=== PATIENT | female | born 1975 | race Caucasian/White ===

== ENCOUNTER 2021-10-12 15:57 | Emergency (ER) | payer MEDICAID, SELFPAY ==
[2021-10-12 16:13] VITALS: BP 156/99; PULSE 96; RESP 18; TEMP 36.7; O2SAT 98; BMI 66.5
--- NOTE | 2021-10-12 18:11 | W.ED.WOUNDLC ---
HPI - Wound/Laceration General: Chief Complaint: Wound/Laceration Stated Complaint: sore on belly/thigh Time Seen by Provider: 10/12/21 16:17 Source: patient Mode of arrival: ambulatory Limitations: no limitations History of Present Illness: 45-year-old female has a history of morbid obesity states that she has had increasing excoriations and redness and a foul smell coming from her skin folds. States she has noticed that over the last week. She denies any fevers she states that it is painful denies any worsening improving factors denies any vomiting or diarrhea. Associated symptoms: Denies chills, fever(s), nausea or vomiting Review of Systems Const: Denies: fever(s), chills, body aches or change in appetite Eyes: Denies: blurry vision or eye discomfort ENMT: Denies: throat pain or dental pain Card: Denies: chest pain Resp: Denies: dyspnea GI: Denies: abdominal pain, nausea, vomiting or diarrhea : Denies: dysuria Musc: Denies: neck pain or back pain Skin/Breast: Reports: rash Neuro: Denies: headache(s) Psych: Denies: depression Blayne/Lymph: Denies: easy bruising All/Imm: Denies: urticaria PFSH ED PFSH: Medical History (Updated 10/12/21 @ 19:13 by Dilip Munoz MD) Morbid obesity Social History (Updated 10/12/21 @ 18:13 by Dilip Munoz MD) Substance/Drug Use: never Female Reproductive History: Date of last menstrual period: 08/05/21 Physical Exam Const: COMMON NORMALS: no acute distress, patient oriented x3 and healthy appearing HENMT: COMMON NORMALS: normocephalic and atraumatic HEAD & SCALP: normocephalic and atraumatic Eye: COMMON NORMALS: Equal, round and reactive pupils present and EOMs intact bilaterally PUPIL: Yes Equal, round and reactive pupils present Neck/C-Spine: COMMON NORMALS: full ROM and supple Chest: COMMONS NORMALS: normal inspection of the chest and normal palpation of entire chest wall Resp: COMMON NORMALS: normal respiratory effort, No retractions, No use of accessory muscles and clear to auscultation bilaterally AUSCULTATION: clear to auscultation bilaterally Cardio: COMMON NORMALS: regular rate, regular rhythm and No murmurs present (Cardio) RATE: regular rate RHYTHM: regular rhythm GI: COMMON NORMALS: Normal to inspection, nondistended, normoactive bowel sounds present, Soft to palpation, non-tender and no masses PALPATION: Yes Soft to palpation OTHER: Multiple excoriations in her skin folds underneath her pannus with secondary infection likely fungal Extremity: COMMON NORMALS: normal to inspection and full ROM Neuro: COMMON NORMALS: patient oriented x3, moves all extremities and no focal motor deficits Psych: COMMON NORMALS: mental status grossly normal, Normal thought process present and cooperative THOUGHT PROCESS: Normal thought process present Skin: COMMON NORMALS: no rashes or lesions noted and no wounds GENERAL SKIN EXAM: no rashes or lesions noted Course Vital Signs: Vital signs: Vital Signs Temperature 98.1 F 10/12/21 16:13 Pulse Rate 96 10/12/21 16:13 Respiratory Rate 18 10/12/21 16:13 Blood Pressure 156/99 10/12/21 16:13 Pulse Oximetry 98 10/12/21 16:13 MDM - Wound/Laceration Medical Decision Making Patient presents here with severe intertrigo to her abdominal folds we will place her on Keflex along with ketoconazole antifungal and get her follow-up with dermatology she is stable for discharge and return if worsening. Lab Data : 10/12/21 18:50 Laboratory Results WBC 6.9 10^3/uL (4.0-10.0) 10/12/21 18:50 RBC 5.10 10^6/uL (4.1-5.3) 10/12/21 18:50 Hgb 13.1 g/dL (11.5-15.3) 10/12/21 18:50 Hct 42.3 % (37.0-47.0) 10/12/21 18:50 MCV 82.9 fl (81-99) 10/12/21 18:50 MCH 25.7 pg (28.0-34.0) L 10/12/21 18:50 MCHC 31.0 g/dL (30.0-36.0) 10/12/21 18:50 RDW 15.9 % (12.1-15.1) H 10/12/21 18:50 Plt Count 214 10^3/cmm (130-400) 10/12/21 18:50 MPV 10.1 fL (7.4-10.4) 10/12/21 18:50 Neut % (Auto) 68.6 % 10/12/21 18:50 Lymph % (Auto) 14.3 % 10/12/21 18:50 [place] % (Auto) 14.0 % 10/12/21 18:50 Eos % (Auto) 2.2 % 10/12/21 18:50 Baso % (Auto) 0.6 % 10/12/21 18:50 Neut # (Auto) 4.75 10^3/uL (1.8-7.7) 10/12/21 18:50 Lymph # (Auto) 1.0 10^3/uL (0.8-4.8) 10/12/21 18:50 [place] # (Auto) 1.0 10^3/uL (0.2-0.9) H 10/12/21 18:50 Eos # (Auto) 0.2 10^3/uL (0.0-0.8) 10/12/21 18:50 Baso # (Auto) 0.0 10^3/uL (0.0-0.1) 10/12/21 18:50 Nucleated RBC % (auto) 0 % 10/12/21 18:50 Nucleated RBCs # 0.0 /100WBC 10/12/21 18:50 Discharge Plan Discharge Patient Disposition: Home Clinical Impression: Intertrigo Prescriptions: New ketoconazole 2 % cream 1 applic topical BID 14 Days Qty: 60 0RF cephalexin 500 mg capsule 500 mg PO TID 7 Days Qty: 21 0RF Discharge Orders: Discharge ED (Routine); Ordered 10/12/21 Ordered By: Dilip Munoz Referrals: Vero Canas DO [Physician] - 1-3 days Discharge Diet: Advance as tolerated Discharge Activity: Resume usual activity Patient Instructions: Skin Yeast Infection (ED) Coding Level of Care Code ED Emergency Veterinary Assistant for Malathig Fwd Exam Comprehensive
[2021-10-12 19:07] LABS: Basophils % 0.6 %; Eosinophils # 0.2 10^3/uL (0.0-0.8); Eosinophils % 2.2 %; Hematocrit 42.3 % (37.0-47.0); Hemoglobin 13.1 g/dL (11.5-15.3); Lymphocytes % 14.3 %; Mean Corpuscular Hemoglobin 25.7 pg (28.0-34.0); Mean Corpuscular Volume 82.9 fl (81-99); Mean Platelet Volume 10.1 fL (7.4-10.4); Neutrophils # 4.75 10^3/uL (1.8-7.7); Neutrophils % 68.6 %; Nucleated Red Blood Cells % 0 %; Platelet Count 214 10^3/cmm (130-400); Red Cell Distribution Width 15.9 % (12.1-15.1); White Blood Count 6.9 10^3/uL (4.0-10.0)
[2021-10-12] MEDS: cefTRIAXone 1,000 MG in sodium chloride 0.9% (plus) 50 ML 100 MG IV (19:11)
[2021-10-12] MEDS: ondansetron 2 mg/ML SDV 2 mL 4 MG IVP (19:12)
--- NOTE | 2021-10-14 14:58 | DCPLANNER ---
multimedia manager had message to schedule a follow up appointment for patient with dermatology. multimedia manager is unable to schedule follow up appointments with dermatology from the ER. The clinic wants the referral to come from patients primary care physician. multimedia manager called patient and explained this to the patient. multimedia manager offered to get patient established with a primary care physician. Patient stated not at this time, she stated that she is not for sure if she is staying in the area or moving back to where she came from. Patient will call social work case manager if she decides that she wants to get established with a primary care physician.
== END 2021-10-12 20:02 | disposition home or self-care (01) ==
PROVIDERS: Emergency Provider Emergency Medicine
DX: L30.4 Erythema intertrigo (principal); E66.01 Morbid (severe) obesity due to excess calories; Z68.44 Body mass index [BMI] 60.0-69.9, adult
CPT/HCPCS: 85025; 96365; 96375; 99283; J0696; J2405

== ENCOUNTER 2023-01-23 12:53 | Outpatient (CLI) | payer MEDICARE, MEDICAID, SELFPAY ==
--- NOTE | 2023-01-23 13:23 | US_ITS ---
WS: [id number] US transvaginal [id number] HISTORY: EXCESSIVE FREQUENT MENSTRUATION W/IRREGULAR CYCLE COMPARISON: None available. Quality of this examination is compromised by body habitus. Uterus: 8.9 cm x 3.9 cm x 4.5 cm. Uterus appears normal in size but is tipped posterior with the fundus directed towards the sacrum. Th e entire uterus is not very well visualized due to the position of the uterus. No fibroid or mass vandana ntified. Endometrium: 0.9 cm. Limited but unremarkable. With history of abnormal bleeding further evaluation m ay be necessary to exclude neoplasm. Neither ovary is identified. No adnexal masses. No free fluid in the cul-de-sac. US/US transvaginal [id number] IMPRESSION: 1. Quality is compromised by body habitus and position of the uterus. 2. Neither ovary is identified. 3. Incomplete visualization of the endometrium.
--- NOTE | 2023-01-23 13:23 | USCV_ITS ---
Rose Carmona Age: 47 Gender: F : 1975 Exam Date: 01/23/2023 14:19 Ordering Phys: Amita Lui DO Technologist: CT Exam Location: [facility] – [place] Indication: family hx of bicuspid valve BP: 129 / 86 HR: 63 Rhythm: Sinus Technical Quality: Adequate MEASUREMENTS (Male / Female) Normal Values 2D ECHO LV Chamber Size 5.2 cm RV Chamber Size 3.6 cm LVOT Diameter 2.3 cm LV Ejection Fraction MOD 2C 21.4 % LV Ejection Fraction 2C AL 22.1 % LA Diameter 3.8 cm LA Width 4.6 cm LA Height 5.4 cm RA Width 4.0 cm RA Height 5.1 cm Aorta at Sinotubular Diameter 2.2 cm IVC Diameter 1.9 cm M-MODE Aortic Annulus Diameter 3.3 cm LA Ao Ratio MM 1.3 MV E Point Septal Separation 1.0 cm DOPPLER AV Peak Velocity 141.0 cm/s LVOT Peak Velocity 111.0 cm/s AV Area Cont Eq vti 3.1 cm squared AV Area Cont Eq pk 3.1 cm squared MV Peak Velocity 106.0 cm/s MV Area PHT 4.4 cm squared Mitral E to A Ratio 1.7 MV E' Velocity 58.5 cm/s Mitral E to MV E' Ratio 10.7 Mitral E to LV E' Lateral Ratio 10.3 Mitral E to LV E' Septal Ratio 11.3 TR Peak Velocity 109.7 cm/s TR Peak Gradient 4.8 mmHg TV Peak E Velocity 105.0 cm/s Right Atrial Pressure 3.0 mmHg Pulmonary Artery Systolic Pressu 7.8 mmHg PV Peak Velocity 113.0 cm/s FINDINGS Left Ventricle Left ventricle is normal in size. LV systolic function is normal with EF of 50 to 55%. No regional wall motion abnormalities are seen. Grossly LV systolic function is normal. Accurate assessment of regional wall motion normalities is not possible because of poor ultrasonic windows. Right Ventricle Normal in size and function Right Atrium Grossly normal Left Atrium Normal in size Mitral Valve Grossly normal. Aortic Valve Not well-visualized. No significant stenosis or regurgitation seen. Tricuspid Valve Mild tricuspid regurgitation. Pulmonary artery systolic pressure is normal. Pulmonic Valve Not well-visualized Pericardium Normal Aorta Normal in size IVC Appears to be normal CONCLUSIONS Technically limited quality echocardiogram because of poor ultrasonic windows. LV systolic function is grossly normal. Valvular structures are not well-visualized. Mild tricuspid regurgitation No comparison studies are available. Nicolás Cantu MD (Electronically Signed) Final Date: 23 January 2023 16:28 S
== END 2023-01-23 12:54 | disposition home or self-care (01) ==
PROVIDERS: PCP Family Medicine; Visit Provider Family Medicine
DX: Q23.1 Congenital insufficiency of aortic valve (principal); N92.1 Excessive and frequent menstruation with irregular cycle
CPT/HCPCS: 76830; 93306

== ENCOUNTER → 2023-02-11 12:00 | Outpatient (BNVA) | payer MEDICARE, MEDICAID, SELFPAY | PROVIDERS: PCP Family Medicine; Referring Provider Family Medicine; Visit Provider Nurse Practitioner Women's Health | DX: Z12.4 Encounter for screening for malignant neoplasm of cervix (principal) | CPT/HCPCS: 88175 ==

== ENCOUNTER → 2023-02-16 13:35 | Outpatient (BNVA) | payer MEDICARE, MEDICAID, SELFPAY | PROVIDERS: PCP Family Medicine; Referring Provider Family Medicine; Visit Provider Specialist | DX: M17.0 Bilateral primary osteoarthritis of knee; E66.01 Morbid (severe) obesity due to excess calories; M79.3 Panniculitis, unspecified; Z68.44 Body mass index [BMI] 60.0-69.9, adult | CPT/HCPCS: 73560; 73565; 99204 ==

== ENCOUNTER 2023-03-19 15:20 | Outpatient (CLI) | payer MEDICARE, MEDICAID, SELFPAY | END 2023-03-19 15:21 | disposition home or self-care (01) | PROVIDERS: PCP Family Medicine; Visit Provider Student in an Organized Health Care Education/Training Program | DX: Z01.89 Encounter for other specified special examinations (principal) | CPT/HCPCS: 36415; 83516; 83519 ==

== ENCOUNTER → 2023-04-08 10:53 | Outpatient (BNVA) | payer MEDICARE, MEDICAID, SELFPAY | PROVIDERS: PCP Family Medicine; Visit Provider Specialist | DX: G56.03 Carpal tunnel syndrome, bilateral upper limbs; E66.01 Morbid (severe) obesity due to excess calories; Z68.44 Body mass index [BMI] 60.0-69.9, adult | CPT/HCPCS: 73110; 99214 ==

== ENCOUNTER → 2023-05-04 08:32 | Outpatient (BNVA) | payer MEDICARE, MEDICAID, SELFPAY | PROVIDERS: PCP Family Medicine; Referring Provider Specialist; Visit Provider Anesthesiology Pain Medicine | DX: M54.16 Radiculopathy, lumbar region (principal); M17.0 Bilateral primary osteoarthritis of knee; E66.01 Morbid (severe) obesity due to excess calories; Z68.44 Body mass index [BMI] 60.0-69.9, adult | CPT/HCPCS: 99204 ==

== ENCOUNTER → 2023-07-09 13:54 | Outpatient (BNVA) | payer MEDICARE, MEDICAID, SELFPAY | PROVIDERS: PCP Family Medicine; Visit Provider Anesthesiology Pain Medicine | DX: M17.0 Bilateral primary osteoarthritis of knee (principal) | CPT/HCPCS: 20610; J1030; J3490 ==

== ENCOUNTER → 2023-07-23 14:40 | Outpatient (BNVA) | payer MEDICARE, SELFPAY | PROVIDERS: PCP Family Medicine; Visit Provider Nurse Practitioner Women's Health | DX: E66.01 Morbid (severe) obesity due to excess calories (principal); R53.83 Other fatigue | CPT/HCPCS: 82670; 83001; 84146; 84443 ==

== ENCOUNTER → 2023-08-13 11:43 | Outpatient (BNVA) | payer MEDICARE, SELFPAY | PROVIDERS: PCP Family Medicine; Visit Provider Obstetrics & Gynecology | DX: I87.2 Venous insufficiency (chronic) (peripheral) (principal); L30.4 Erythema intertrigo; D22.21 Melanocytic nevi of right ear and external auricular canal; L57.8 Other skin changes due to chronic exposure to nonionizing radiation; L81.4 Other melanin hyperpigmentation; L82.0 Inflamed seborrheic keratosis; L84 Corns and callosities; L82.1 Other seborrheic keratosis | CPT/HCPCS: 17110; 76830; 99204 ==

== ENCOUNTER → 2023-08-21 12:42 | Outpatient (BNVA) | payer MEDICARE, MEDICAID, SELFPAY | PROVIDERS: PCP Family Medicine; Visit Provider Specialist | DX: G56.01 Carpal tunnel syndrome, right upper limb (principal) | CPT/HCPCS: 95911 ==

== ENCOUNTER 2023-08-28 10:45 | Outpatient (CLI) | payer MEDICARE, MEDICAID, SELFPAY ==
--- NOTE | 2023-08-28 11:00 | MR_ITS ---
WS: [id number] MRI HEAD WITH CONTRAST TECHNIQUE: Sagittal T1, T2 axial, T2 axial FLAIR, axial susceptibility weighted imaging, axial diffus ion weighted images, and coronal T2 images were obtained. Pre and post-T1 axial and post T1 coronal i mages. ADC and FSPGR images. CLINICAL INFORMATION: R79.89 - Other specified abnormal findings of blood chemi... COMPARISON: None. FINDINGS: No evidence of restricted diffusion to suggest acute ischemia. Ventricular system and basal cisterns are patent. Mild patchy supratentorial white matter changes nonspecific in a patient this age but can be seen with hypertension, diabetes, collagen vascular disease, and migraine headaches. Demyelinatin g disease less likely. Normal corpus callosum. No significant parenchymal volume loss. Normal posterior fossa. Normal vascular flow voids at the skull base. No extra-axial fluid collection s. No evidence of mass or mass effect. Paranasal sinuses and mastoid air cells are well aerated. Norm al posterior nasopharynx. No hemosiderin on the susceptibly weighted images. Normal optic chiasm and pituitary infundibulum. Te mporal lobes and hippocampal formations are normal in appearance. No abnormal gadolinium enhancement. Normal dural venous sinuses. No other suspicious findings. IMPRESSION: 1. No evidence of restricted diffusion to suggest acute ischemia. 2. Mild patchy supratentorial white matter changes nonspecific in a patient this age but can be seen with hypertension, diabetes, collagen vascular disease, and migraine headaches. Demyelinating diseas e is less likely. 3. Corpus callosum appears normal. 4. No significant parenchymal volume loss. 5. No abnormal gadolinium enhancement. 6. No other suspicious findings.
[2023-08-28] MEDS: gadobenate dimeglumine 20 mL vial IV (11:31)
== END 2023-08-28 10:46 | disposition home or self-care (01) ==
PROVIDERS: PCP Family Medicine; Visit Provider Nurse Practitioner Women's Health
DX: R79.89 Other specified abnormal findings of blood chemistry (principal)
CPT/HCPCS: 70553; A9577

== ENCOUNTER → 2023-09-03 09:31 | Outpatient (BNVA) | payer MEDICARE, MEDICAID, SELFPAY | PROVIDERS: PCP Family Medicine; Visit Provider Nurse Practitioner Family | DX: B07.8 Other viral warts (principal); D22.21 Melanocytic nevi of right ear and external auricular canal; L57.8 Other skin changes due to chronic exposure to nonionizing radiation; L81.4 Other melanin hyperpigmentation | CPT/HCPCS: 17110; 99213 ==

== ENCOUNTER 2023-09-15 02:59 | Emergency (ER) | payer MEDICARE, MEDICAID, SELFPAY ==
[2023-09-15 03:04] VITALS: BP 158/78; PULSE 77; RESP 18; TEMP 36.4; O2SAT 96; BMI 74.5
--- NOTE | 2023-09-15 03:14 | CTR_ITS ---
PROCEDURE INFORMATION: Exam: CT Abdomen And Pelvis With Contrast Exam date and time: 09/15/2023 3:57 AM Age: 47 years old Clinical indication: Abdominal pain; Localized; Left lower quadrant (llq); Additional info: Rlq abd pain TECHNIQUE: Imaging protocol: Computed tomography of the abdomen and pelvis with contrast. Radiation optimization: All CT scans at this facility use at least one of these dose optimization techniques: automated exposure control; mA and/or kV adjustment per patient size (includes targeted exams where dose is matched to clinical indication); or iterative reconstruction. Contrast material: OMNI 350; Contrast volume: 125 ml; Contrast route: INTRAVENOUS (IV); COMPARISON: US transvaginal [id number] 08/13/2023 11:50 AM RADIATION DOSE METRICS: Total DLP (mGy-cm): 1365 FINDINGS: Liver: Normal. No mass. Gallbladder and bile ducts: Normal. No calcified stones. No ductal dilation. Pancreas: Normal. No ductal dilation. Spleen: Normal. No splenomegaly. Adrenal glands: Normal. No mass. Kidneys and ureters: Tiny nonobstructing right renal calculi. Small bilateral renal cysts. Moderate right hydronephrosis secondary to a 7 mm calculus in the proximal right ureter. Stomach and bowel: Unremarkable. No obstruction. No mucosal thickening. Appendix: No evidence of appendicitis. Intraperitoneal space: Unremarkable. No free air. No significant fluid collection. Vasculature: Unremarkable. No abdominal aortic aneurysm. Lymph nodes: Unremarkable. No enlarged lymph nodes. Urinary bladder: Unremarkable as visualized. Reproductive: Unremarkable as visualized. Bones/joints: Unremarkable. No acute fracture. Soft tissues: Large ventral abdominal hernia containing a loop of nonobstructed transverse colon. CT/CT abdomen pelvis w con* [id number] IMPRESSION: Moderate right hydronephrosis secondary to a 7 mm calculus in the proximal right ureter. COMMENTS: Consistent with the [employer]'s Incidental Findings Committee white paper (J Am Reva Radiol 2018): Any incidental renal lesion less than 1 cm or classified as too small to characterize, or any incidental cystic renal lesion characterized as simple-appearing, is likely benign. No follow-up imaging is recommended for these lesions per consensus recommendations based on imaging criteria.
[2023-09-15 03:25] LABS: Basophils # 0.1 10^3/uL (0.0-0.1); Basophils % 0.7 %; Eosinophils # 0.3 10^3/uL (0.0-0.8); Eosinophils % 2.5 %; Lymphocytes # 1.8 10^3/uL (0.8-4.8); Lymphocytes % 17.1 %; Mean Corpuscular HGB Conc 31.1 g/dL (30-55); Mean Corpuscular Hemoglobin 26.3 pg (27-33); Mean Corpuscular Volume 84.6 fl (85-98); Mean Platelet Volume 9.9 fL (7.4-10.4); Monocytes # 0.7 10^3/uL (0.2-0.9); Monocytes % 6.6 %; Neutrophils # 7.42 10^3/uL (1.8-7.7); Neutrophils % 72.7 %; Nucleated Red Blood Cells % 0 %; Platelet Count 268 10^3/cmm (157-399); Red Blood Count 5.32 10^6/uL (3.85-5.65); Red Cell Distribution Width 14.6 % (12.1-15.1); White Blood Count 10.21 10^3/uL (3.29-11.43)
[2023-09-15 03:28] LABS: HCG Qualitative Urine. Negative (Negative)
[2023-09-15 03:33] LABS: Add Urine Culture? No; Add Urine Microscopic? YES; Bacteria Urine 1+ /hpf; Bilirubin Urine Neg (Negative); Blood Urine 2+ (Negative); Glucose Urine UA Norm (Normal); Ketones Urine Negative (Negative); Leukocyte Esterase Urine Negative (Negative); Mucus Urine 1+ /hpf; Nitrate Urine Negative (Negative); Protein Urine Neg (Negative); RBC Urine 15-25 /hpf (0-2); Specific Gravity, Urine 1.025 (1.005-1.030); Squamous Epithelial Cell Urine 15-25 /hpf (0-5); Urine Appearance Hazy (CLEAR); Urine Color Light yellow (Yellow); Urobilinogen Urine Neg (Negative); WBC Urine 0-4 /hpf (0-5); pH Urine 5 (5-7)
[2023-09-15 03:46] LABS: Alanine Aminotransferase 13 U/L (0-33); Albumin Level 4.2 g/dL (3.5-5.2); Alkaline Phosphatase 104 U/L (35-105); Blood Urea Nitrogen 20 mg/dL (6-20); Calcium 9.4 mg/dL (8.5-10.5); Carbon Dioxide 24 mmol/L (22-29); Chloride 103 mmol/L (98-107); Creatinine Clr Calc Pharmacy 132.4877; Globulin 2.5 g/dL (1.3-4.6); Glomerular Filtration Rate 58.9 mL/min (90-130); Glucose 116 mg/dL (65-115); Lipase 42 U/L (13-60); Osmolality Calculated 288 mOsm/kg (285-295); Sodium 137 mmol/L (136-145); Total Bilirubin 0.3 mg/dL (0.15-1.2); Total Protein 6.7 g/dL (6.6-8.7)
[2023-09-15 03:48] LABS: Anion Gap 14.3 (5-19); Potassium 4.3 mmol/L (3.5-5.1)
[2023-09-15 03:49] LABS: Aspartate Amino Transferase 19 U/L (0-32)
[2023-09-15] MEDS: iohexol 350 mg/mL 500 mL Btl (per mL) IV (03:59)
[2023-09-15] MEDS: ketorolac 30 mg/mL INJ IVP (04:08)
--- NOTE | 2023-09-15 04:19 | ED_ITS ---
HPI - Abdominal Pain 2 General: Chief Complaint: Abdominal Pain Stated Complaint: abd pain Time Seen by Provider: 09/15/23 03:14 History of Present Illness: 47-year-old female presents the emergenc y department with complaints of right lower quadrant abdominal pain. She states she has recently been seen by ANTISQUEAK CHALKER for similar complaints. She does have a MRI of her abdomen scheduled for September. Patient states she does have intermittent sharp and mixed with a dull vague 8 out of 10 right flank and right abdominal pain. She states nothing seems to make it better nothing seems to make it worse. She states she does have associated nausea without vomiting. Associated Symptoms: Reports nausea; Denies vomiting Review of Systems 2 General: Reports: 10 or more systems reviewed and unremarkable except in HPI and below GI: Reports: abdominal pain and nausea; Denies: vomiting : Reports: flank pain PFSH ED 2 PFSH: Medical History Morbid obesity Family History Grandmother Diabetes Grandfather Heart disease maternal Mother Ovarian cancer dx'd at age 60 Denies family history of Colon cancer Prostate cancer Hyperlipidemia Breast cancer Hypertension Uterine cancer Thyroid disease Stroke Physical Exam 2 Narrative: EXAM NARRATIVE: Constitutional: the patient appears well nourished and of normal development. Vital signs as documented. Mild appearance of pain noted. Alert and oriented- to person, place, time and situation. Morbidly obese. Head, eyes, ears, nose, mouth, throat: Normocephalic, atraumatic. Pupils-equal, round, reactive to light. No scleral icterus. Normal-appearing external ears. Normal appearing nasal turbinates, no drainage. No obvious oral lesions, posterior oropharynx without erythema or exudates. Neck: Supple, trachea is midline, no lymphadenopathy, no jugular venous distension, thyromegaly, or carotid bruits. Carotid upstrokes are brisk bilaterally. Lungs: clear to auscultation to all lung [place]. Decreased bilaterally in the bases secondary to body habitus symmetrical rise and fall of chest, no obvious signs of increased work of breathing at present. Cardiac: Regular rate and rhythm, positive S1, S2. No murmurs, rubs or gallops that I can appreciate Abdomen: Soft, non-tender to palpation, normal active bowel sounds to all quadrants. No palpable masses, no organomegaly and abdominal bruits. Back: Right CVA tenderness to percussion, normal alignment of the vertebral column Extremities: 2+ pulses in the upper extremities that are equal bilaterally, 2+ pulses in the lower extremities that are equal bilaterally. Non-edematous. Moves all extremities well, sensation to all extremities are noted. Skin: Warm, dry, intact. Course 2 Vital Signs: Vital signs: Vital Signs Temperature 97.5 F L 09/15/23 03:04 Pulse Rate 61 09/15/23 04:26 Respiratory Rate 16 09/15/23 04:26 Blood Pressure 151/68 09/15/23 04:26 Pulse Oximetry 98 09/15/23 04:26 Oxygen Delivery Me thod Room Air 09/15/23 03:04 MDM - Abdominal Pain Medical Decision Making Physical exam completed and documented I will obtain a CBC and CMP as well as a CT scan abdomen pelvis. Will obtain a urinalysis to evaluate for urinary tract infection as well as a urine hCG. Patient does have an extensive history of abdominal pain and has been seen by ANTISQUEAK CHALKER and pain management previously. Differential diagnosis includes acute appendicitis, ectopic , ovarian cyst, gastroenteritis, cystitis, pyelonephritis, renal calculi, colitis. Medical Records I reviewed the patient's medical records. Lab Data I reviewed the patient's lab results. 09/15/23 03:10 09/15/23 03:10 Labs/Radiology: Radiology Impressions Abdomen/Pelvis CT 09/15/23 03:14 IMPRESSION: Moderate right hydronephrosis secondary to a 7 mm calculus in the proximal right ureter. COMMENTS: Consistent with the [employer]'s Incidental Findings Committee white paper (J Am Reva Radiol 2018): Any incidental renal lesion less than 1 cm or classified as too small to characterize, or any incidental cystic renal lesion characterized as simple-appearing, is likely benign. No follow-up imaging is recommended for these lesions per consensus recommendations based on imaging criteria. Laboratory Results WBC 10.21 10^3/uL (3.29-11.43) 09/15/23 03:10 RBC 5.32 10^6/uL (3.85-5.65) 09/15/23 03:10 Hgb 14.00 g/dL (11.27-16.99) 09/15/23 03:10 Hct 45.0 % (36-47) 09/15/23 03:10 MCV 84.6 fl (85-98) L 09/15/23 03:10 MCH 26.3 pg (27-33) L 09/15/23 03:10 MCHC 31.1 g/dL (30-55) 09/15/23 03:10 RDW 14.6 % (12.1-15.1) 09/15/23 03:10 Plt Count 268 10^3/cmm (157-399) 09/15/23 03:10 MPV 9.9 fL (7.4-10.4) 09/15/23 03:10 Neut % (Auto) 72.7 % 09/15/23 03:10 Lymph % (Auto) 17.1 % 09/15/23 03:10 [place] % (Auto) 6.6 % 09/15/23 03:10 Eos % (Auto) 2.5 % 09/15/23 03:10 Baso % (Auto) 0.7 % 09/15/23 03:10 Neut # (Auto) 7.42 10^3/uL (1.8-7.7) 09/15/23 03:10 Lymph # (Auto) 1.8 10^3/uL (0.8-4.8) 09/15/23 03:10 [place] # (Auto) 0.7 10^3/uL (0.2-0.9) 09/15/23 03:10 Eos # (Auto) 0.3 10^3/uL (0.0-0.8) 09/15/23 03:10 Baso # (Auto) 0.1 10^3/uL (0.0-0.1) 09/15/23 03:10 Nucleated RBC % (auto) 0 % 09/15/23 03:10 Nucleated RBCs # 0.0 /100WBC 09/15/23 03:10 Sodium 137 mmol/L (136-145) 09/15/23 03:10 Potassium 4.3 mmol/L (3.5-5.1) 09/15/23 03:10 Chloride 103 mmol/L (98-107) 09/15/23 03:10 Carbon Dioxide 24 mmol/L (22-29) 09/15/23 03:10 Anion Gap 14.3 (5-19) 09/15/23 03:10 BUN 20 mg/dL (6-20) 09/15/23 03:10 Creatinine 1.0 mg/dL (0.5-0.9) H 09/15/23 03:10 GFR Calculation 58.9 mL/min (90-130) L 09/15/23 03:10 Glucose 116 mg/dL (65-115) H 09/15/23 03:10 Calculated Osmolality 288 mOsm/kg (285-295) 09/15/23 03:10 Calcium 9.4 mg/dL (8.5-10.5) 09/15/23 03:10 Total Bilirubin 0.3 mg/dL (0.15-1.2) 09/15/23 03:10 AST 19 U/L (0-32) 09/15/23 03:10 ALT 13 U/L (0-33) 09/15/23 03:10 Alkaline Phosphatase 104 U/L (35-105) 09/15/23 03:10 Total Protein 6.7 g/dL (6.6-8.7) 09/15/23 03:10 Albumin 4.2 g/dL (3.5-5.2) 09/15/23 03:10 Globulin 2.5 g/dL (1.3-4.6) 09/15/23 03:10 Lipase 42 U/L (13-60) 09/15/23 03:10 HCG, Qual Negative (Negative) 09/15/23 03:10 Urine Color Light yellow (Yellow) 09/15/23 03:10 Urine Appearance Hazy (CLEAR) A 09/15/23 03:10 Urine pH 5 (5-7) 09/15/23 03:10 Ur Specific [place] 1.025 (1.005-1.030) 09/15/23 03:10 Urine Protein Neg (Negative) 09/15/23 03:10 Urine Glucose (UA) Norm (Normal) 09/15/23 03:10 Urine Ketones Negative (Negative) 09/15/23 03:10 Urine Blood 2+ (Negative) H 09/15/23 03:10 Urine Nitrate Negative (Negative) 09/15/23 03:10 Urine Bilirubin Neg (Negative) 09/15/23 03:10 Urine Urobilinogen Neg mg/dL (Negative) 09/15/23 03:10 Ur Leukocyte Esterase Negative (Negative) 09/15/23 03:10 Urine RBC 15-25 /hpf (0-2) H 09/15/23 03:10 Urine WBC 0-4 /hpf (0-5) H 09/15/23 03:10 Ur Squamous Epith Cells 15-25 /hpf (0-5) H 09/15/23 03:10 Amorphous Sediment Not Reportable 09/15/23 03:10 Urine Bacteria 1+ /hpf (NONE) H 09/15/23 03:10 Urine Mucus 1+ /hpf 09/15/23 03:10 All radiology interpretation(s) finalized by discharge Discharge Plan Discharge Patient Disposition: Home Clinical Impression: Kidney stone on right side, Nausea Condition: Stable Prescriptions: New ondansetron HCl 4 mg tablet 4 mg PO Q12H 5 Days Qty: 10 0RF Flomax 0.4 mg capsule 0.4 mg PO DAILY Qty: 30 0RF No Action propranolol 40 mg tablet 40 mg PO BID losartan 50 mg tablet 50 mg PO DAILY duloxetine 30 mg capsule, delayed rel sprinkle 30 mg PO TID cyclobenzaprine 10 mg tablet 10 mg PO Patient Comments: At bedtime when needed cetirizine [Zyrtec] 10 mg tablet 10 mg PO DAILY PRN famotidine 20 mg tablet 20 mg PO BID topiramate 50 mg tablet 50 mg PO BID 30 Days Qty: 60 0RF Discharge Orders: Discharge ED (Routine); Ordered 09/15/23 Ordered By: Jr Benito Referrals: Amita Lui DO [Primary Care Provider] - Discharge Diet: Usual diet Discharge Activity: Resume usual activity Patient Instructions: Opioid Safety, Pain Management Activity Restrictions/Additional Instructions: Activity Restrictions/Additional Instructions: Thank you for choosing [facility] for your healthcare needs today. Please realize that you were seen in the Emergency Department and that we are providing you with an emergency medical screening exam and this may not be a complete and all inclusive of all the testing and or medical work-up that you may need to determine your ailment or severity of your illness. It is very important that you follow-up as instructed with your Primary care provider or Specialist for additional evaluation and to discuss your medical treatment plan. Call to make a Follow-up appointment: [facility] [address] [place] [address] [facility] [address] Prieto [place], [place] [address] Phone--[phone] Coding Level of Care Code ED Nurseryperson for Ro Jenkins
[2023-09-15] MEDS: ondansetron 2 mg/ML SDV 2 mL 4 MG IVP (04:23)
[2023-09-15 04:26] VITALS: BP 151/68; PULSE 61; RESP 16; O2SAT 98
== END 2023-09-15 05:39 | disposition home or self-care (01) ==
PROVIDERS: Emergency Provider Internal Medicine; PCP Family Medicine
DX: N13.2 Hydronephrosis with renal and ureteral calculous obstruction (principal); R11.0 Nausea
CPT/HCPCS: 74177; 80053; 81001; 81025; 83690; 85025; 96374; 96375; 99285; J1885; J2405; Q9967

== ENCOUNTER → 2023-09-28 09:53 | Outpatient (BNVA) | payer MEDICARE, MEDICAID, SELFPAY | PROVIDERS: PCP Family Medicine; Visit Provider Anesthesiology Pain Medicine | DX: M54.16 Radiculopathy, lumbar region (principal); M17.0 Bilateral primary osteoarthritis of knee; E66.01 Morbid (severe) obesity due to excess calories; Z68.45 Body mass index [BMI] 70 or greater, adult | CPT/HCPCS: 99214 ==

== ENCOUNTER 2023-10-06 07:06 | Outpatient (CLI) | payer MEDICARE, MEDICAID, SELFPAY ==
--- NOTE | 2023-10-06 07:15 | MR_ITS ---
WS: [id number] MRI/MRCP OF THE ABDOMEN WITHOUT GADOLINIUM ENHANCEMENT TECHNIQUE: Coronal T2 Fase BH, Axial T2 Fase BH, Axial T2 FS BH, Zxial 3D Parker BH, Axial DWI BH, 2D MRCP Radial BH, 3D MRCP (Resp), and Axial 3D Dyn BH Post sequences. CLINICAL INFORMATION: Z80.41 - Family history of malignant neoplasm of ovary COMPARISON: CT 09/15/2023 FINDINGS: Diastases of the rectus abdominis. [place] ventral abdominal wall hernia containing a loop of nonob structed transverse colon similar to the recent CT. Some of this extends off the [id number]. Herni a mouth measures approximately 7.7 cm. Contained hernia is in the midline near the level of the umbil icus or just inferior to the umbilicus. Moderate spondylitic changes lumbar spine. Lumbar curve. Anteverted uterus. Normal sigmoid colon. No free fluid in the pelvis. Partially visualized RIGHT hydronephrosis appears stable compared to the pr ior CT. Proximal RIGHT ureterectasis. Previously described 7 mm obstructing calculus better seen on t he prior CT. Recommend CT follow-up. Normal caliber distal abdominal aorta. A few tiny bilateral renal cysts. Adrenal glands are normal. In addition,, tiny umbilical and and RIGHT supraumbilical defects containing a tiny amount of omental fat better seen on the prior CT without significant herniation. Impression: 1. [place] ventral abdominal wall hernia with rectus diastases. [place] hernia contains a loop o f nonobstructed transverse colon. Hernia mouth measures 7.7 cm. Hernia is in the midline at the umbil icus or just inferior to the umbilicus and partially extends off the [id number]. This is more comp letely visualized on the recent CT. 2. No evidence of bowel obstruction. 3. Stable RIGHT moderate hydronephrosis and RIGHT ureterectasis. Previously described obstructing ca lculus better seen on the recent CT. Recommend correlation with renal function and CT renal stone pro tocol follow-up 4. 2 additional tiny abdominal wall defects at the level of the umbilicus and RIGHT supraumbilical w ith a tiny amount of fat herniation. Series 701 image 54 and series 701 image 44. areas are indicated in the bookmarks section
[2023-10-06] MEDS: gadobenate dimeglumine 20 mL vial IV (08:24)
== END 2023-10-06 07:07 | disposition home or self-care (01) ==
LOC: RAD 07:06
PROVIDERS: PCP Family Medicine; Visit Provider Nurse Practitioner Women's Health
DX: Z80.41 Family history of malignant neoplasm of ovary (principal); K43.9 Ventral hernia without obstruction or gangrene; M62.08 Separation of muscle (nontraumatic), other site; N13.30 Unspecified hydronephrosis; N13.4 Hydroureter
CPT/HCPCS: 74183; 99203; A9577

== ENCOUNTER → 2023-11-03 12:40 | Outpatient (BNVA) | payer MEDICARE, MEDICAID, SELFPAY | PROVIDERS: PCP Family Medicine; Visit Provider Surgery | DX: K46.9 Unspecified abdominal hernia without obstruction or gangrene | CPT/HCPCS: 99204 ==

== ENCOUNTER 2023-11-09 10:43 | Outpatient (CLI) | payer MEDICARE, MEDICAID, SELFPAY ==
--- NOTE | 2023-11-09 11:00 | MR_ITS ---
WS: [id number] MRI PELVIS WITH AND WITHOUT CONTRAST CONTRAST. COMPARISON: Pelvic ultrasound 08/13/2023 Multiplanar, multisequence imaging is performed with and without contrast. MultiHance 20 mL IV. History: Abdominal distention with gas. No free fluid or adenopathy within the pelvis. Patient has a known ventral abdominal wall hernia belo w the umbilicus. This is a large mouth hernia containing nonobstructed transverse colon. Similar to t he prior study of 10/06/2023. There is marked thinning of the abdominal wall musculature. There is also marked atrophy of the psoas muscles. Uterus is midline and normal size. No fibroid or mass. Both ovaries aren't dental 5. Small follicle a ssociated with the LEFT ovary measuring 11 mm. Urinary bladder is nondistended. No intraluminal mass. Osseous structures are normal. MR/MR pelvis wo/w con [id number] IMPRESSION: 1. Normal uterus and adnexa. 2. Large infraumbilical abdominal wall hernia containing nonobstructed transve rse colon. 3. No ascites or adenopathy.
[2023-11-09] MEDS: gadobenate dimeglumine 20 mL vial IV (11:24)
== END 2023-11-09 10:44 | disposition home or self-care (01) ==
LOC: RAD 10:43
PROVIDERS: PCP Family Medicine; Visit Provider Nurse Practitioner Women's Health
DX: R14.0 Abdominal distension (gaseous) (principal); K42.9 Umbilical hernia without obstruction or gangrene; Z80.41 Family history of malignant neoplasm of ovary; R10.2 Pelvic and perineal pain; Z80.9 Family history of malignant neoplasm, unspecified
CPT/HCPCS: 72197; A9577

== ENCOUNTER 2024-01-18 10:58 | Outpatient (CLI) | payer MEDICARE, MEDICAID, SELFPAY ==
--- NOTE | 2024-01-18 11:06 | MM_ITS ---
WS: [id number] BILATERAL SCREENING DIGITAL TOMOSYNTHESIS MAMMOGRAM WITH CAD HISTORY: SCREENING COMPARISON: None available. Bilateral CC and MLO views with tomosynthesis and synthetic mammography submitted. Computer aided det ection analyzed. Breast composition: There are scattered areas of fibroglandular density. No suspicious masses, microc alcifications or architectural distortion. Scattered benign calcifications throughout each breast. No suspicious grouping of calcifications or asymmetries. MM/[place] [id number] IMPRESSION: BI-RADS: 2-Benign FOLLOW UP: 1 Year Follow-up
== END 2024-01-18 10:59 | disposition home or self-care (01) ==
LOC: RAD 10:59
PROVIDERS: PCP Family Medicine; Visit Provider Family Medicine
DX: Z12.31 Encounter for screening mammogram for malignant neoplasm of breast (principal)
CPT/HCPCS: 77063; 77067

== ENCOUNTER → 2024-02-01 15:04 | Outpatient (BNVA) | payer MEDICARE, MEDICAID, SELFPAY | PROVIDERS: PCP Family Medicine; Visit Provider Specialist | DX: G56.03 Carpal tunnel syndrome, bilateral upper limbs (principal) | CPT/HCPCS: 73130; 99214 ==

== ENCOUNTER → 2024-03-30 10:56 | Outpatient (BNVA) | payer MEDICARE, MEDICAID, SELFPAY | PROVIDERS: PCP Family Medicine; Visit Provider Specialist | DX: G56.03 Carpal tunnel syndrome, bilateral upper limbs (principal); Z01.818 Encounter for other preprocedural examination; R79.89 Other specified abnormal findings of blood chemistry | CPT/HCPCS: 36415; 80053; 81003; 83036; 85025; 99214 ==

== ENCOUNTER 2024-04-19 05:30 | Day surgery (SDC) | payer MEDICARE, MEDICAID, SELFPAY ==
--- OUTSIDE RECORDS SUMMARY | 2024-04-04 15:17 | XMS_ITS | Patient Health Record ---
Author Name Unknown Organization [facility] Address [address] [place] [address] Care Team Providers Care Continuous Improvement Coordinator Name Role Phone Heide Marquez Primary Care Provider Allergies Allergen (clinical drug ingredient) Drug/Non Drug Allergy documented on EMR Reaction Allergy Type Onset Date Status Codeine Phosphate Unknown Drug Allergy Active Reason For Referral No Information Medications Medication SIG (Take, Route, Frequency, Duration) Notes Start Date End Date Status Furosemide 20 MG 1 tablet Orally Once a day for 30 day(s) 07/03/2020 Active Acetaminophen Not-Ta dorothy Diclofenac Sodium 50 MG Take 1 tablet as needed with food for chronic pain Orally every 12 hours for 30 Active Propranolol HCl 40 MG Take 1 tablet Orally Once a day for 90 days for tremors & BP Active Gabapentin 100 MG 1 capsule as needed for pain Orally twice a day for 30 Active tiZANidine HCl 4 MG 1/2 tablet as needed Orally twice a day Active PARoxetine HCl 20 MG 1 tablet in the morning Orally Once a day for 90 days Active Omeprazole 20 MG 1 capsule 30 minutes before morning meal Orally Once a day for 90 Active Social History Tobacco Use: Social History Observation Description Date Details (start date - stop date) Never Smoker NA - NA Tobacco Use/Smoking Question Answer Notes Are you a: nonsmoker Alcohol Screen Question Answer Notes Did you have a drink containing alcohol in the p ast year? No Points 0 Interpretation Negative Sexual History Question Answer Notes Had sex in the past 12 months (vaginal, oral, or anal)? No Have you ever had a Sexually transmitted disease ? No Last menstrual period 11/28/19 Problems Problem Type SNOMED Code ICD Code Onset Dates Problem Status W/U Status Risk Notes Problem 386255928 Morbid (severe) obesity due to excess calories (E66.01) Active confirmed Problem 16135482 Other chronic pa in (G89.29) Active confirmed Problem 357244455 Body mass index (BMI) 60.0-69.9, adult (Z68.44) Active confirmed Problem 84858083 Essential hypertension (I10) Active confirmed Problem 421586300 Gastroesophageal reflux disease, esophagitis presence not specified (K21.9) Active confirmed Problem 869183073 Callus of foot (L84) Active confirmed bilateral Problem 559407717 Osteoarthritis o f multiple joints, unspecified osteoarthritis type (M15.9) Active confirmed Problem 457607404 Anxiety with depression (F41.8) Active confirmed Problem 30138256 Candidiasis of breast (B37.89) Active confirmed Problem 934859027762863 Marla-menopausal (N95.1) Active confirmed Problem 22829066497571043 Swelling of to e of left foot (M79.89) Active confirmed 4th toe Problem 355430608 Benign essential tremor (G25.0) Active confirmed Problem 572679719 History of torn meniscus of left knee (Z87.828) Active confirmed Plan Of Treatment Pending Test Test Name Order Date MAMMOGRAM, SCREENING 12/27/2019 Future Test Test Name Order Date CMP Comp. Metabolic Panel (020721) 07/31 Insurance Providers Payer Name Payer Address Payer Phone Subscriber Number Group Number Insured Name Patient Relationship to Insured Coverage Start Date Coverage End Date [facility] [place] [address] [address] [place] [address] [id number] Rose Carmona Self - patient is the insured Medical (General) History Medical History History ICD Code hypertension depression anxiety GERD Benign essential tremors Kidney stones 2017 Osteoarthritis Umbilical Hernia 2005 Surgical History Surgery Date(Month/Year) section 07/03 left knee out patient C-Sections x 2-2004,2005 section 08/30 Hospitalization History Reason Date(Month/Year) C-sections x 2- [facility]
--- OUTSIDE RECORDS SUMMARY | 2024-04-04 15:18 | XMS_ITS ---
Author Name Unknown Organization [facility] Billing Info Address [address] [place] [address] Care Team Providers Care Clinical Social Work Therapist Name Role Phone CHUY PEREZ Primary Care Provider [phone] TAVON MCDOWELL Unavailable [phone] ERIK HOSKINS Unavailable [phone] Allergies Allergen (clinical drug ingredient) Drug/Non Drug Allergy documented on EMR Reaction Allergy Type Onset Date Status codeine Codeine Unknown Drug Allergy Active REASON FOR VISIT worsening [place] Encounters Encounter Location Date Provider Diagnosis [id number] [facility] [place] [address] [place], [place] [id number] 10/22/2022 ERIK HOSKINS Assessments Encounter Date Diagnosis (ICD Code) Assessment Notes Treatment Notes Treatment Clinical Notes 10/22/2022 Other Heart-Healthy D iet: Care Instructions material was published to portal Plan Of Treatment Treatment Notes Assessment Notes Other Heart-Healthy Diet: Care Instructions material was published to portal Progress Notes * Rose CARMONADOB:1975 ( 48 yo F)Acc No.[id number]:10/22/2022 PROGRESS NOTE Patient:?Rose CARMONA Provider:?Erik Hoskins MD :1975???Age:47 Y???Sex:Female D ate:10/22/2022 ?N#:[id number] [address] [id number] Pcp:CHUY PEREZ Subjective: * Chief Complaints: * ???1. worsening [place]. * HPI: ???First Point of Contact Screening:?Do any of the following apply to you?New rash or open sores?No ?Fever and/or chills in the past 7 days?No ?Cough?No ?Muscle or body aches (other than from an injury)?No ?Sore throat?No ?In the past 3 weeks, have you or a close contact traveled outside the [place] and you are now ill??No * Medical History:?Lymphedema. , Osteoarthritis- multiple joints, especially knees., Seasonal allergies., Kidney stones x2., HTN., Essential tremor (on propranolol)., GERD., Depression., Anxiety., PAP: 1 year- reports normal., Mammogram: 02/2022 wnl., Colonoscopy: 02/2022- 1 polyp found, repeat 5 years., INFLUENZA: does not normally get., COVID: vaccinated x2 ., TDAP: thinks around 2016..? * Surgical History:?c-sections x2- 2004 and 2005 , Tonsil/adenoids 2000, Left knee meniscus repair 10/2019, lithotripsy 12/2016. * Hospitalization/Major Diagno stic Procedure:?Skin infection under panus- MRSA 10/2021, c-sections as above . * Family History:?Mother: dece ased, Passed from stage 4 ovarian cancer, diagnosed with Diabetes.?Father: , Schiophrenia, seizures.?Sister(s): alive.?Daughter(s): alive, Hypothyroidism- oldest daughter.?1 sister(s) - healthy. 2 daughter(s) . .? Oldest daughter goes by they/them Maternal grandmother with leukemia- passed @ 87 yo Maternal grandfather with CAD and lung disease from working in coal mine Maternal uncle with heart issues No one else in the family with breast/ovarian cancer. * Social History:?Alcohol Use?Patient?uses alcohol Socially, one drink a month ???Marital Status: . ???Lives with: 2 daughters, in 2017. ???Social Determinants of Health (SDoH)?1) Are you worried or concerned that in the next two months you may not have stable housing that you own, rent, or stay in as a part of a household??No ???Illicit Drug Use?Patient/Family reports:?No illicit drug use ???*DO NOT USE * Tobacco Status (CQW)?Patient is?Never smoker ???Occupation/Work: Does not work, on disability. * Allergies:?Codeine: Side Eff ects - Criticality High. Objective: * Vitals:? Assessment: Plan: * Treatment: * Care Plan Details* Patient Education Notes Heart-Healthy Diet: Care Ins tructions?10/21/2022 09:51:02 AM Heart-Healthy Diet: Care Ins tructions material was published to portal?10/21/2022 09:51:04 AM * This progress note has not b een verified nor is it considered complete until locked and signed by the provider. Sign off status: Pending * Provider:?Erik Hoskins MD Date:? 10/22/2022 Generated for Promise holt/Lopez/Tami on:?04/04/2024 03:17 PM CDT History and Physical Notes * HPI (History of Present Illness) Category Sub-Category Detail Notes First Point of Contact Screening Do any of the following apply to you? New rash or open sores: No Fever and/or chills in the past 7 days: No Cough: No Muscle or body aches (other than from an injury): No Sore throat: No In the past 3 weeks, have yo u or a close contact traveled outside the [place] and you are now ill? : No
--- OUTSIDE RECORDS SUMMARY | 2024-04-04 15:18 | XMS_ITS ---
Author Name Unknown Organization [facility] Billing Info Address [address] [place] [address] Care Team Providers Care Associate Professor Of Art Name Role Phone CHUY PEREZ Primary Care Provider TAVON MCDOWELL Unavailable [phone] LLOYD LOPES Unavailable [phone] REASON FOR VISIT 3 MONTH F/U AFTER US Encounters Encounter Location Date Provider Diagnosis [id number] [facility] [address] [place] [address] 12/01/2022 LLOYD LOPES Plan Of Treatment No Information Progress Notes * Rose ADDISONDOB:1975 ( 48 yo F)Acc No.[id number]:12/01/2022 PROGRESS NOTE Patient:?Alexa ADDISONanna Provider:?LLOYD LOPES MD :1975???Age:47 Y???Sex:Female D ate:12/01/2022 ?N#:[id number] Address[address] [place] Pcp:CHUY PEREZ Subjective: * Chief Complaints: * ???1. 3 MONTH F/U AFTER US. * Medical History:?? Objective: * Vitals:? Assessment: Plan: * Treatment: * Care Plan Details* * This progress note has not b een verified nor is it considered complete until locked and signed by the provider. Sign off status: Pending * Provider:?LLOYD LOPES MD Date:? 023 Generated for Promise holt/Lopez/Tami on:?04/04/2024 03:17 PM CDT
--- OUTSIDE RECORDS SUMMARY | 2024-04-04 15:18 | XMS_ITS | Patient Health Record ---
Author Name Unknown Organization [facility] Billing Info Address [address] [place] [address] Care Team Providers Care Playground Director Name Role Phone CHRISMATTEOCHUY Primary Care Provider [phone] TAVON MCDOWELL Unavailable [phone] Allergies Allergen (clinical drug ingredient) Drug/Non Drug Allergy documented on EMR Reaction Allergy Type Onset Date Status codeine Codeine Unknown Drug Allergy Active Reason For Referral No Information Medications Medication SIG (Take, Route, Frequency, Duration) Notes Start Date End Date Status Acetaminophen 500 MG 1 capsule as needed Orally every 6 hrs for 30 day(s) 650mg every 8 hours prn Active Pantoprazole Sodium 40 MG 1 tablet Orall y Once a day for 30 day(s) Active Celecoxib 100 MG TAKE 1 CAPSULE BY MOUTH TWICE DAILY WITH FOOD for 90 Active Duloxetine HCl 30 MG 1 capsule Orally BID for 90 days Active Losartan Potassium 50 MG Take 1 tablet b y mouth once daily for 90 Active Tamsulosin HCl 0.4 MG 1 capsule Orally Once a day for 30 day(s) 07/07/2022 Active Hydrochlorothiazide 12.5 MG 1 tablet in the morning Orally Once a day for 30 day(s) 10/01/2022 Active Cyclobenzaprine HCl 10 MG 1 tablet at bedtime as needed Orally Once a day for 30 day(s) 07/04/2022 Active Doxycycline Hyclate 100 MG 1 tablet Oral ly Twice a day for 10 day(s) 06/16/2022 Not-Taking Cetirizine HCl 10 MG 1 tablet Orally Once a day for 90 day(s) Active Omeprazole 40 MG 1 capsule 30 minutes before morning meal Orally Once a day for 30 day(s) Not-Taking Propranolol HCl 40 MG 1 tablet Orally Twice a day for 30 day(s) Active Problems Problem Type SNOMED Code ICD Code Onset Dates Problem Status W/U Status Risk Notes Problem 219176321 Essential tremor (G25.0) Active confirmed Problem 341345819 Ventral hernia without obstruction or gangrene (K43.9) Active confirmed Problem 404130848 History of kidne y stones (Z87.442) Active confirmed Problem 38087362 Chronic acquired lymphedema (I89.0) Active confirmed Problem 92862180065991280 Lymphedema of both lower extremities (I89.0) Active confirmed Problem 31932289 Primary hypertension (I10) Active confirmed Problem Morbid obesity (194357531) Morbid obesity due to excess calories (E66.01) Active confirmed Problem 089049232 Primary osteoarthritis of both knees (M17.0) Active confirmed Problem 517554841 Nabothian cyst (N88.8) Active confirmed Problem 51619328 Ectropion of cervix (N86) Active confirmed Problem 222359740 Family history o f bicuspid aortic valve (Z82.79) Active confirmed Problem 070426870 Open wound of abdominal wall, initial encounter (S31.109A) Active confirmed Problem 630910076 Seasonal allergi c rhinitis, unspecified trigger (J30.2) Active confirmed Problem 869683076 Major depressive disorder with current active episode, unspecified depression episode severity, unspecified whether recurrent (F32.9) Active confirmed Problem 722282028 Gastroesophageal reflux disease, unspecified whether esophagitis present (K21.9) Active confirmed Plan Of Treatment Pending Test Test Name Order Date ECHO- ECHOCARDIOGRAM COMPLETE(27001)(MTO E)([facility]) 06/16/2022 Future Test Test Name Order Date US- RENAL COMPLETE (85005)([facility]) Insurance Providers Payer Name Payer Address Payer Phone Subscriber Number Group Number Insured Name Patient Relationship to Insured Coverage Start Date Coverage End Date [facility] [address] ATTN CLAIMS [place], [place] [id number] Rose Carmona Self - patient is the insured Medical (General) History Medical History History ICD Code Lymphedema. Osteoarthritis- multiple joints, especia lly knees. Seasonal allergies. Kidney stones x2. HTN. Essential tremor (on propranolol). GERD. Depression. Anxiety. PAP: 1 year- reports normal. Mammogram: 02/2022 wnl. Colonoscopy: 02/2022- 1 polyp found, repe at 5 years. INFLUENZA: does not normally get. COVID: vaccinated x2 . TDAP: thinks around 2017. Surgical History Surgery Date(Month/Year) c-sections x2- 2005 and 2006 Tonsil/adenoids 2000 Left knee meniscus repair 10/2019 lithotripsy 12/2016 Hospitalization History Reason Date(Month/Year) Skin infection under panus- MRSA 10/2021 c-sections as above
--- OUTSIDE RECORDS SUMMARY | 2024-04-04 15:18 | XMS_ITS ---
Author Name Unknown Organization [facility] Billing Info Address [address] [place] [address] Care Team Providers Care Concrete Mixing Truck Driver Name Role Phone CHRIS CHUY Primary Care Provider TAVON MCDOWELL Unavailable [phone] HARMONY HOSKINS Unavailable [phone] Allergies Allergen (clinical drug ingredient) Drug/Non Drug Allergy documented on EMR Reaction Allergy Type Onset Date Status codeine Codeine Unknown Drug Allergy Active REASON FOR VISIT chart prep Encounters Encounter Location Date Provider Diagnosis [id number] [place] [address] [facility] [address] [id number] 10/21/2022 HARMONY HOSKINS Plan Of Treatment No Information Progress Notes * Rose CARMONADOB:1975 ( 47 yo F)Acc No.[id number]:10/21/2022 Patient:?Rose Carmona :1975???Age:47 Y???Sex:Female Address:[address] [place], [address] Subjective: * Chief Complaints: * ???Chart prep * Medical History:? * Surgical History:? * Hospitalization/Major Diagno stic Procedure:? * Medications:? * Allergies:?Codeine: Side Eff ects - Criticality High Objective: Assessment: Plan: * Treatment: * Procedure Codes:? * true * Date:? Generated for Promise holt/Lopez/Tami on:?04/04/2024 03:17 PM CDT
[2024-04-19] VITALS (10 sets, daily range): BP systolic 109–137; BP diastolic 62–80; PULSE 70–85; RESP 13–23; TEMP 36.3–36.6; O2SAT 93–100; BMI 63.7
--- OUTSIDE RECORDS SUMMARY | 2024-04-19 05:33 | XMS_ITS | Patient Health Record ---
Author Name Unknown Organization [facility] Billing Info Address [address] [place] [address] Care Team Providers Care Personnel Associate Name Role Phone CHRISMATTEOCHUY Primary Care Provider TAVON MCDOWELL Unavailable [phone] Allergies Allergen (clinical drug ingredient) Drug/Non Drug [...] Problem Status W/U Status Risk Notes Problem 014384140 Essential tremor (G25.0) Active confirmed Problem 831316766 Ventral hernia without obstruction or gangrene (K43.9) Active confirmed Problem 680564241 History of kidne y stones (Z87.442) Active confirmed Problem 75176786 Chronic acquired lymphedema (I89.0) Active confirmed Problem 27722190062684257 Lymphedema of both lower extremities (I89.0) Active confirmed Problem 40333632 Primary hypertension (I10) Active confirmed Problem Morbid obesity (199069593) Morbid obesity due to excess calories (E66.01) Active confirmed Problem 781790260 Primary osteoarthritis of both knees (M17.0) Active confirmed Problem 864432365 Nabothian cyst (N88.8) Active confirmed Problem 75190114 Ectropion of cervix (N86) Active confirmed Problem 515913840 Family history o f bicuspid aortic valve (Z82.79) Active confirmed Problem 339357157 Open wound of abdominal wall, initial encounter (S31.109A) Active confirmed Problem 639655071 Seasonal allergi c rhinitis, unspecified trigger (J30.2) Active confirmed Problem 131970128 Major depressive disorder with current active episode, unspecified depression episode severity, unspecified whether recurrent (F32.9) Active confirmed Problem 177344651 Gastroesophageal reflux disease, unspecified whether esophagitis present (K21.9) Active confirmed Plan Of Treatment Pending Test Test Name Order Date ECHO- ECHOCARDIOGRAM COMPLETE(20169)(MTO E)([facility]) 06/16/2022 Future Test Test Name Order Date US- RENAL COMPLETE (34436)([facility]) Insurance Providers Payer Name Payer Address Payer Phone Subscriber Number Group Number Insured Name Patient Relationship to Insured Coverage Start Date Coverage End Date [facility] [address] ATTN CLAIMS [place], [place] [id number] Rose Carmona Self - patient is the [...]
--- OUTSIDE RECORDS SUMMARY | 2024-04-19 05:33 | XMS_ITS ---
Author Name Unknown Organization [facility] Billing Info Address [address] [place] [address] Care Team Providers Care Help Desk Assistant Name Role Phone CHUY PEREZ Primary Care Provider [phone] TAVON MCDOWELL Unavailable [phone] ERIK HOSKINS Unavailable [phone] Allergies Allergen (clinical drug ingredient) Drug/Non Drug Allergy documented on EMR Reaction Allergy Type Onset Date Status codeine Codeine Unknown Drug Allergy Active REASON FOR VISIT worsening [place] Encounters Encounter Location Date Provider Diagnosis [id number] [facility] [place] [facility] T509 [address] [place], [place] [id number] 10/22/2022 ERIK HOSKINS Assessments Encounter Date Diagnosis (ICD Code) Assessment Notes Treatment Notes Treatment Clinical Notes 10/22/2022 Other Heart-Healthy D iet: Care Instructions material was published to portal Plan Of Treatment Treatment Notes Assessment Notes Other Heart-Healthy Diet: Care Instructions material was published to portal Progress Notes * Rose CARMONADOB:1975 ( 48 yo F)Acc No.[id number]:10/22/2022 PROGRESS NOTE Patient:?Rose CARMONA Provider:?Erik Hoskins MD :1975???Age:47 Y???Sex:Female D ate:10/22/2022 ?N#:[id number] [address] [id number] Pcp:CHUY PEREZ Subjective: * Chief Complaints: * ???1. worsening [place]. * HPI: ???First Point of Contact Screening:?Do any of the following apply to you?New rash or open sores?No ?Fever and/or chills in the past 7 days?No ?Cough?No ?Muscle or body aches (other than from an injury)?No ?Sore throat?No ?In the past 3 weeks, have you or a close contact traveled outside the [place] and you are now ill??No * [...] Hoskins MD Date:? 10/22/2022 Generated for Promise holt/Lopez/Oneliaitting on:?04/19/2024 05:33 AM CDT History and Physical Notes * HPI [...]
--- OUTSIDE RECORDS SUMMARY | 2024-04-19 05:33 | XMS_ITS | Patient Health Record ---
Author Name Unknown Organization [facility] [employer] [facility] Address [address] [place] [address] Care Team Providers Care Respiratory Medicine Physician Name Role Phone Heide Marquez Primary Care [...] Problem Status W/U Status Risk Notes Problem 459013321 Morbid (severe) obesity due to excess calories (E66.01) Active confirmed Problem 85143058 Other chronic pa in (G89.29) Active confirmed Problem 043784679 Body mass index (BMI) 60.0-69.9, adult (Z68.44) Active confirmed Problem 53103934 Essential hypertension (I10) Active confirmed Problem 209792232 Gastroesophageal reflux disease, esophagitis presence not specified (K21.9) Active confirmed Problem 908815270 Callus of foot (L84) Active confirmed bilateral Problem 945889694 Osteoarthritis o f multiple joints, unspecified osteoarthritis type (M15.9) Active confirmed Problem 620392409 Anxiety with depression (F41.8) Active confirmed Problem 37277481 Candidiasis of breast (B37.89) Active confirmed Problem 999271210669387 Marla-menopausal (N95.1) Active confirmed Problem 01170255114547167 Swelling of to e of left foot (M79.89) Active confirmed 4th toe Problem 715565643 Benign essential tremor (G25.0) Active confirmed Problem 897967742 History of torn meniscus of left knee (Z87.828) Active confirmed Plan Of Treatment Pending Test Test Name Order Date MAMMOGRAM, SCREENING 12/27/2019 Future Test Test Name Order Date CMP Comp. Metabolic Panel (300913) 07/31 Insurance Providers Payer Name Payer Address Payer Phone Subscriber Number Group Number Insured Name Patient Relationship to Insured Coverage Start Date Coverage End Date [facility] [place] [address] [address] [place] [phone] [id number] Rose Carmona Self - patient is the insured Medical (General) History Medical History History ICD Code hypertension depression anxiety GERD Benign essential tremors Kidney stones 2017 Osteoarthritis Umbilical Hernia 2005 Surgical History Surgery Date(Month/Year) section 07/03 left knee out patient C-Sections x 2-2004,2005 section 08/30 Hospitalization History Reason Date(Month/Year) C-sections x 2- [facility]
--- OUTSIDE RECORDS SUMMARY | 2024-04-19 05:33 | XMS_ITS ---
Author Name Unknown Organization [facility] Billing Info Address [address] [place] [id number] Care Team Providers Care Woven Wood Shade Assembler Name Role Phone CHUY PEREZ Primary Care Provider TAVON MCDOWELL Unavailable [phone] LLOYD LOPES Unavailable [phone] REASON FOR VISIT 3 MONTH F/U AFTER US Encounters Encounter Location Date Provider Diagnosis [id number] [facility] [address] [place] [address] 12/01/2022 LLOYD LOPES Plan Of Treatment No Information Progress Notes * Rose ADDISONDOB:1975 ( 48 yo F)Acc No.[id number]:12/01/2022 PROGRESS NOTE Patient:?Alexa ADDISONanna Provider:?LLOYD LOPES MD :1975???Age:47 Y???Sex:Female D ate:12/01/2022 ?N#:[id number] Address:[address] [place], [place]-[id number] Pcp:CHUY PEREZ Subjective: * Chief Complaints: * ???1. 3 MONTH F/U AFTER US. * Medical History:?? Objective: * Vitals:? Assessment: Plan: * Treatment: * Care Plan Details* * This progress note has not b een verified nor is it considered complete until locked and signed by the provider. Sign off status: Pending * Provider:?LLOYD LOPES MD Date:? 023 Generated for Promise holt/Lopez/Tami on:?04/19/2024 05:33 AM CDT
--- OUTSIDE RECORDS SUMMARY | 2024-04-19 05:33 | XMS_ITS ---
Author Name Unknown Organization [facility] Billing Info Address [address] [place] [id number] Care Team Providers Care Electric Repair Supervisor Name Role Phone CHRIS CHUY Primary Care Provider TAVON MCDOWELL Unavailable [phone] HARMONY HOSKINS Unavailable [phone] Allergies Allergen (clinical drug ingredient) Drug/Non Drug Allergy documented on EMR Reaction Allergy Type Onset Date Status codeine Codeine Unknown Drug Allergy Active REASON FOR VISIT chart prep Encounters Encounter Location Date Provider Diagnosis [id number] [place] [address] [facility] [address] [id number] 10/21/2022 HARMONY HOSKINS Plan Of Treatment No Information Progress Notes * Rose CARMONADOB:1975 ( 47 yo F)Acc No.[id number]:10/21/2022 Patient:?Rose Carmona :1975???Age:47 Y???Sex:Female Address:[address] [place], [address] Subjective: * Chief Complaints: * ???Chart prep * Medical History:? * Surgical History:? * Hospitalization/Major Diagno stic Procedure:? * Medications:? * Allergies:?Codeine: Side Eff ects - Criticality High Objective: Assessment: Plan: * Treatment: * Procedure Codes:? * true * Date:? Generated for Promise holt/Lopez/Tami on:?04/19/2024 05:33 AM CDT
[2024-04-19] MEDS: CELEcoxib 200 mg Capsule 400 MG PO (06:15)
[2024-04-19] MEDS: gabapentin 300 mg Capsule PO (06:16)
[2024-04-19] MEDS: acetaminophen 1,000 MG/100 ML PIGGYBACK 400 MG IV (06:18)
[2024-04-19] MEDS: sodium chloride 0.9% 1,000 ML 30 ML IV (06:18)
[2024-04-19 06:19] LABS: OR HCG Qualitative Urine Negative (Negative)
[2024-04-19] MEDS: scopolamine 1.5 Patch 1 PATCH TRANSDERMA (06:39)
--- NOTE | 2024-04-19 06:50 | ANES.PREANE2 ---
Pre-Anesthetic Assessment Height/Weight: Height 1.7 m Weight 184.612 kg Temp Pulse Resp BP Pulse Ox O2 Del Method 97.6 F 77 16 137/73 97 Room Air 04/19/24 06:07 04/19/24 06:07 04/19/24 06:07 04/19/24 06:07 04/19/24 06:07 04/19/24 06:07 Operation Date: 04/19/24 07:00 Proposed Procedures p Carpal Tunnel Release(Right) - Jessica Stern MD Familial anesthetic complications: PONV Was Beta Chinedu taken within 24 hours: N/A Was Clonidine taken within 24 hours: N/A Last intake: Intake Last Liquid Date 04/18/24 Last Liquid Time 23:50 Last Solid Date 04/18/24 Last Solid Time 21:00 Social No alcohol and No tobacco Exam alert, oriented x 3, clear to auscultation bilaterally and regular rate & rhythm Airway Mallampati: Class III Dentition: other (missing molars) CV/HEM Hypertension GI Gastroesophageal Reflux Disease Metabolic Morbid Obesity [facility] Anesthetic Plan ASA status: 3 Anesthesia: General Risk of > 500 ml blood loss (7ml/kg in children): No Medications/Allergies Home Medications Medication Instructions Recorded Confirmed Last Taken Type cetirizine 10 mg tablet (Zyrtec) 10 mg PO DAILY PRN Allergy Symptoms 02/11/23 04/19/24 04/18/24 History duloxetine 30 mg capsule,delayed 30 mg PO TID Anxiety, depression 02/11/23 04/19/24 04/18/24 History release sprinkle losartan 50 mg tablet 50 mg PO DAILY High blood pressure 02/11/23 04/18/24 04/17/24 History propranolol 40 mg tablet 40 mg PO BID Benign essential 02/11/23 04/19/24 04/18/24 History tremors famotidine 20 mg tablet 20 mg PO BID 07/23/23 04/19/24 04/18/24 History ondansetron 4 mg disintegrating 4 mg PO Q6H 09/28/23 04/18/24 Unknown History tablet topiramate 50 mg tablet 50 mg PO BID pain 30 days #60 tabs 09/28/23 04/19/24 04/18/24 Rx Allergies Allergy/AdvReac Type Severity Reaction Status Date / Time bacitracin Allergy rash Verified 04/08/24 11:39 [From Polysporin(bacitracin base)] codeine Allergy ADR-Halluci Verified 04/08/24 11:32 nating polymyxin B Allergy rash Verified 04/08/24 11:39 [From Polysporin(bacitracin base)] Neomycin & Polymyxin Allergy rash Uncoded 04/08/24 11:39 Neosporin Allergy rash Uncoded 04/08/24 11:39 Nystatin Allergy rash Uncoded 04/08/24 11:39 Current Medications Generic Name Dose Route Start Last Admin Trade Name Freq PRN Reason Stop Dose Admin Sodium Chloride 1,000 mls @ 30 mls/hr 04/19/24 05:45 04/19/24 06:18 Sodium Chloride 0.9% IV 04/20/24 05:44 30 mls/hr .Q24H MARIO ALBERTO Administration PFSH Anesthesia Medical History Morbid obesity Family History Grandmother Diabetes Grandfather Heart disease maternal Mother Ovarian cancer dx'd at age 60 Other Family history of malignant neoplasm of ovary Denies family history of Colon cancer Prostate cancer Hyperlipidemia Breast cancer Hypertension Uterine cancer Thyroid disease Stroke Social History Smoking and tobacco/nicotine status: never used tobacco/nicotine Second hand smoke exposure: Yes Alcohol intake: never Substance/Drug Use: never Data Anesthesia Cardiac Studies: Echocardiogram 01/23/23
--- NOTE | 2024-04-19 06:57 | P.HPUD_ITS ---
Surgery/Procedure H&P Update DATE OF PROCEDURE: April 19, 2024 DATE H&P PERFORMED: 04/08/24 H&P UPDATE INFORMATION: I have reviewed H&P completed within last 30 days, I have examined patient prior to procedure, No changes to prior documentation and H&P is in [facility] EMR on date indicated PLANNED PROCEDURE: Operation Date: 04/19/24 07:00 Proposed Procedures p Carpal Tunnel Release(Right) - Jessica Stern MD Related Problem List Diagnoses (1) Right carpal tunnel syndrome:
[2024-04-19] MEDS: ceFAZolin 3,000 MG in sodium chloride 0.9% (plus) 100 ML 200 MG IV (07:00)
[2024-04-19] MEDS: BUPivacaine 0.5% INJ 30 mL XX (07:28)
--- NOTE | 2024-04-19 08:15 | P.OP_ITS ---
Operative Report Date of procedure: April 19, 2024 Pre-op diagnosis: Right carpal tunnel syndrome Post-op diagnosis: Right carpal tunnel syndrome Post-op findings: Severe compression across the median nerve with purplish discoloration Procedure done: Right carpal tunnel release Implants: None Specimens removed/disposition: None Surgeon: Jessica Stern MD Projection Camera Operator: None Anesthesia: General (Intubated, ASA 3) Estimated blood loss (mL): 2 Tourniquet time (min): 18 (At 250 mmHg) IV fluids (mL): 500 Urine output (mL): 0 (No Beckham) Complications: None Findings: Severe compression across the median nerve Condition: stable Disposition: PACU (Then return to same-day surgery for discharge to home) Brief History: This 48-year-old female presented to the clinic with complaints of bilateral carpal tunnel symptoms. She was evaluated by her primary care and approved for surgery. Symptoms included pain and numbness as well as tingling. After discussion, she wished to proceed with surgical intervention. Risks and c omplications were explained to the patient. Consents were signed and questions were answered. Procedure: The patient was brought to the operating theater. The patient had a general anesthesia, intubated, ASA 3. The tourniquet was elevated to 250 mmHg for a total tourniquet time of 18 minutes. The patient was also given [] preoperatively. The arm was then prepped and draped with DuraPrep in usual fashion with the arm draped free. A surgical pause was performed. At the time, the surgical pause, we confirmed the site and side of surgery. We also confirmed the patient's identity, appropriate and timely administration of preoperative antibiotics and preoperative surgical markings. An incision was then made along the thenar crease. The incision crossed the wrist joint in a curvilinear fashion. Dissection continued through skin and soft tissues using a scalpel. The palmaris longus was identified along with the transverse carpal ligament. Each of these was released carefully to avoid injury to the median nerve. We were able to dissect gently into the carpal canal which was noted to be quite tight with significant compression across the median nerve. The nerve was visualized and was an hourglass shape. The canal was subsequently palpated to assure there was no bony encroachment upon the canal. There was a quite thickened fibrous tissue within the canal, and this was opened longitudinally as well. The canal was then palpated distally and proximally to assure that my small finger was passed easily without impingement. Finding this to be so, attention was directed to closure. The wound was irrigated with ropivacaine plain. It was then closed with 3-0 nylon in an interrupted mattress fashion. Sterile dressing was then placed consisting of Dermabond, OpSite, fluffed fluffs, sterile soft roll, and an Christoph wrap. The tourniquet was released after 18 minutes. There were no complications. There were no specimens. The procedure was well tolerated. Plan is the patient will be discharged home. Related Problem List Diagnoses (1) Right carpal tunnel syndrome: (2) Morbid obesity with BMI of 60.0-69.9, adult:
--- NOTE | 2024-04-19 09:30 | ANE.PACU2 ---
Inpatient post-anesthesia follow up: Airway intact: Yes Vital signs: Temperature 98 F Pulse Rate 72 Respiratory Rate 16 Blood Pressure 121/64 Pulse Oximetry 95 Oxygen Delivery Me thod Room Air Oxygen Flow Rate 8 Fraction of Inspir ed Oxygen Hydration adequate: Yes Nausea and vomiting: No Pain level: 1 Mental status: Baseline
== END 2024-04-19 09:30 | disposition home or self-care (01) ==
PROVIDERS: Anesthesiology; PCP Family Medicine; Visit Provider Specialist
PROC: (CPT 64721; principal; 2024-04-19 07:00)
DX: G56.01 Carpal tunnel syndrome, right upper limb (principal); I10 Essential (primary) hypertension; K21.9 Gastro-esophageal reflux disease without esophagitis; E66.01 Morbid (severe) obesity due to excess calories; Z68.44 Body mass index [BMI] 60.0-69.9, adult; E28.2 Polycystic ovarian syndrome
CPT/HCPCS: 64721; 81025; J0131; J0330; J0690; J1100; J1200; J2371; J2405; J2704; J3010; J3490; J7030

== ENCOUNTER → 2024-05-04 10:45 | Outpatient (BNVA) | payer MEDICARE, MEDICAID, SELFPAY | PROVIDERS: PCP Family Medicine; Visit Provider Specialist | DX: G56.01 Carpal tunnel syndrome, right upper limb (principal); Z48.89 Encounter for other specified surgical aftercare; E66.01 Morbid (severe) obesity due to excess calories; Z68.44 Body mass index [BMI] 60.0-69.9, adult | CPT/HCPCS: 99024 ==

== ENCOUNTER 2024-06-02 20:00 | Outpatient (CLI) | payer MEDICARE, MEDICAID, SELFPAY | END 2024-06-02 20:01 | disposition home or self-care (01) | LOC: SLEEP 23:29 | PROVIDERS: PCP Family Medicine; Visit Provider Family Medicine | DX: G47.33 Obstructive sleep apnea (adult) (pediatric) (principal); Z99.89 Dependence on other enabling machines and devices | CPT/HCPCS: 95810 ==

== ENCOUNTER 2024-06-15 10:33 | Outpatient (CLI) | payer MEDICARE, MEDICAID, SELFPAY ==
--- NOTE | 2024-06-15 10:54 | XRR_ITS ---
PROCEDURE INFORMATION: Exam: XR Abdomen Exam date and time: 06/15/2024 10:59 AM Age: 48 years old Clinical indication: Condition or disease; Kidney or ureter condition; Calculus (stone) in kidney; Prior surgery; Surgery date: 6+ months; Surgery type: Lithotripsy; Additional info: History of nephrolithiasis, left flank pain TECHNIQUE: Imaging protocol: Radiologic exam of the abdomen. Views: Frontal supine view of the abdomen. 1 View. COMPARISON: MR abdomen wo/w con* [id number] 10/06/2023 7:32 AM FINDINGS: Gastrointestinal tract: Normal. No bowel dilation. Organs: 4 mm round calcific density overlying the left renal shadow. No other calculi noted overlying the renal shadows or expected course of the ureters in this examination. Bones/joints: Unremarkable. XR/XR KUB [id number] IMPRESSION: 1. 4 mm round calcific density overlying the left renal shadow. Suspicious for a nephrolith. 2. No other calculi noted overlying the renal shadows or expected course of the ureters in this examination. Consider a follow-up CT abdomen pelvis renal stone protocol for better evaluation.
== END 2024-06-15 10:34 | disposition home or self-care (01) ==
LOC: RAD 10:39
PROVIDERS: PCP Family Medicine; Visit Provider Nurse Practitioner Family
DX: N20.0 Calculus of kidney (principal); R10.9 Unspecified abdominal pain; Z87.442 Personal history of urinary calculi; Z98.890 Other specified postprocedural states
CPT/HCPCS: 74018